=== PATIENT | female | born 1985 | race American Indian/Alaskan Native ===

== ENCOUNTER 2019-06-08 16:54 | Emergency (ER) | payer OTHER ==
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
--- NOTE | 2019-06-08 20:22 | Cat Scan Report ---
CT HEAD WITHOUT CONTRAST INDICATION: MAIN: head injury TECHNIQUE: All CT scans at this location are performed using CT dose reduction for ALARA by means of automated exposure control. COMPARISON: None available. NOTE: I am unable to obtain the coronal reconstructions of the head of the time of this interpretatio n. FINDINGS: BRAIN: No hemorrhage or mass effect are seen. No evidence of acute infarction is noted. ORBITS: Normal as visualized. SOFT TISSUES OF HEAD: Normal. CALVARIUM: Normal. VISUALIZED PARANASAL SINUSES AND MASTOID AIR CELLS: Clear. ADDITIONAL FINDINGS: None. IMPRESSION: No acute intracranial abnormality. CT CERVICAL SPINE WITHOUT CONTRAST INDICATION: MAIN: head injury TECHNIQUE: All CT scans at this location are performed using CT dose reduction for ALARA by means of automated exposure control. Axial CT images were obtained through the cervical spine. Sagittal and co marilia reformatted images were produced. COMPARISON: None available. Cervical spine findings: No fractures or subluxation are seen. No significant degenerative arthritic changes are noted. No obvious disc herniation is seen. Additional findings: None. IMPRESSION: No acute findings. Signer Name: Mariano Webster MD Signed: 06/08/2019 8:17 PM Workstation Name: [id number]
[2019-06-09] MEDS ORDERED: HYDROcodone/ACETAMINOPHEN 5-325 MG TAB PO ONE (00:23)
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
[2019-06-09 01:32] VITALS: BP 131/89
== END 2019-06-09 01:30 | disposition home or self-care (01) ==
LOC: ED 16:54
DX: M54.2 Cervicalgia (principal); R51 Headache; V49.49XA Driver injured in collision with other motor vehicles in traffic accident, initial encounter; Y93.89 Activity, other specified; Y92.410 Unspecified street and highway as the place of occurrence of the external cause; Y99.8 Other external cause status
CPT/HCPCS: 70450; 72125